=== PATIENT | male | born 1990 | race Caucasian/White ===

== ENCOUNTER 2017-04-11 22:41 | Emergency (ER) | payer BC ==
[~2017-04-11] VITALS: Ht 185.4 cm; Wt 79.8 kg
[~2017-04-11 22:41] MED LIST: AMOXICILLIN500 M1 PO; BACTRIM DS TABL1 TA1 PO; CLINDAMYCIN HC300 MG PO; FAMOTIDINE PO; NO MEDICATIONS; PHENERGAN25 M1 PO; PHENERGAN25 MG PO; PREDNISONE PO; STEROID CREAM; SUBUTEX PO; TYLENOL #3 PO; VOLTAREN75 MG PO; ZOFRANODT PO
== END 2017-04-11 23:27 | disposition home or self-care (01) ==
LOC: SED 22:41
DX: M70.31 Other bursitis of elbow, right elbow (principal)
CPT/HCPCS: 99283